=== PATIENT | male | born 1955 | race Caucasian/White ===

== ENCOUNTER 2016-09-03 16:01 | Emergency (ER) | payer MEDICARE, OTHER ==
[~2016-09-03] VITALS: Ht 180.3 cm; Wt 90.0 kg
[~2016-09-03 16:01] MED LIST: ASPI81CH5 CHEW; ATOR20TA PO; ENAL20TA PO; NOVOLOGP2 SQ; PANT20 PO; PARO20TA PO; PLAV75TA PO
[2016-09-03 16:06] VITALS: BP 130/58; PULSE 86; RESP 18; TEMP 99.6; O2SAT 98
[2016-09-03] MEDS ORDERED: CLOP75TA PO (17:02)
[2016-09-03] MEDS ORDERED: METF1000 PO (17:02)
[2016-09-03] MEDS ORDERED: PANT40TA3 PO (17:02)
[2016-09-03] MEDS ORDERED: ENAL20TA PO (17:02)
[2016-09-03] MEDS ORDERED: ATOR20TA15 PO (17:02)
[2016-09-03] MEDS ORDERED: PARO20TA2 PO (17:02)
[2016-09-03] MEDS ORDERED: LIDOCAINE 1%/EPINEPHrine 1:100,000 SOLN 20 ML VIAL INFIL ONE (17:45)
[2016-09-03] MEDS ORDERED: NORC5TAB PO (18:06)
[2016-09-03] MEDS ORDERED: BACI500O9 TOPICAL (18:06)
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
[2016-09-03] MEDS ORDERED: ACETAMINOPHEN/HYDROcodone 325 MG/5 MG TAB PO ONE (18:15)
[2016-09-03] MEDS ORDERED: BACITRACIN TOP OINT 15 GM TUBE TOPICAL ONE (18:15)
== END 2016-09-03 18:53 | disposition home or self-care (01) ==
LOC: PHED 16:01 → PHEFT 18:53
DX: T24.312A Burn of third degree of left thigh, initial encounter (principal); E11.9 Type 2 diabetes mellitus without complications; J45.909 Unspecified asthma, uncomplicated; J44.9 Chronic obstructive pulmonary disease, unspecified; I25.10 Atherosclerotic heart disease of native coronary artery without angina pectoris; K21.9 Gastro-esophageal reflux disease without esophagitis; X16.XXXA Contact with hot heating appliances, radiators and pipes, initial encounter
CPT/HCPCS: 99283

== ENCOUNTER 2016-09-15 19:54 | Emergency (ER) | payer OTHER ==
[~2016-09-15] VITALS: Ht 182.9 cm; Wt 92.5 kg
[~2016-09-15 19:54] MED LIST changes: -ASPI81CH5 CHEW; -ATOR20TA PO; +ATOR20TA15 PO; +BACI500O9 TOPICAL; +CLOP75TA PO; +METF1000 PO; +NORC5TAB PO; -NOVOLOGP2 SQ; -PANT20 PO; +PANT40TA3 PO; -PARO20TA PO; +PARO20TA2 PO; -PLAV75TA PO
[2016-09-15 20:00] VITALS: BP 144/65; PULSE 79; RESP 18; TEMP 98; O2SAT 99
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
[2016-09-15] MEDS ORDERED: VIST25CA PO (20:42)
[2016-09-15] MEDS ORDERED: CLIN1CAP5 PO (20:42)
[2016-09-15] MEDS ORDERED: CLINDAMYCIN 150 MG CAP PO SCH (20:45)
== END 2016-09-15 20:55 | disposition home or self-care (01) ==
LOC: PHEFT 19:54
DX: L08.89 Other specified local infections of the skin and subcutaneous tissue (principal); E11.9 Type 2 diabetes mellitus without complications; E78.00 Pure hypercholesterolemia, unspecified; F17.200 Nicotine dependence, unspecified, uncomplicated; Z79.4 Long term (current) use of insulin; Z79.01 Long term (current) use of anticoagulants; Z87.09 Personal history of other diseases of the respiratory system; Z86.79 Personal history of other diseases of the circulatory system; Z87.19 Personal history of other diseases of the digestive system; Z86.69 Personal history of other diseases of the nervous system and sense organs
CPT/HCPCS: 99282

== ENCOUNTER 2016-09-18 17:07 | Emergency (ER) | payer OTHER ==
[~2016-09-18] VITALS: Ht 182.9 cm; Wt 93.1 kg
[~2016-09-18 17:07] MED LIST changes: +CLIN1CAP5 PO; +VIST25CA PO
[2016-09-18 17:12] VITALS: BP 151/68; PULSE 78; RESP 16; TEMP 98.8; O2SAT 99
[2016-09-18] MEDS ORDERED: DEXAMETHASONE SOD PHOS 4 MG/ML VIAL IV PUSH ONE (18:00)
[2016-09-18] MEDS ORDERED: methylPREDNISolone SOD SUCC 125 MG/2 ML VIAL IV PUSH ONE ×2 (18:00→18:15)
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
[2016-09-18 18:40] LABS: AUTOMATED NEUTROPHIL # 5.1 TH/MM3 (1.8-7.7); BASOPHIL # 0.1 TH/MM3 (0-0.2); EOSINOPHIL # 0.4 TH/MM3 (0-0.4); EOSINOPHIL % 5.4 % (0.0-4.0); HEMATOCRIT 38.6 % (39.0-51.0); HEMO FLAGS DIFF FINAL; LYMPH % 17.2 % (9.0-44.0); LYMPHOCYTE # 1.3 TH/MM3 (1.0-4.8); MEAN CELL VOLUME 92.2 FL (80.0-100.0); MEAN CORPUSCULAR HEMOGLOBIN 30.4 PG (27.0-34.0); MEAN CORPUSCULAR HGB CONC 32.9 % (32.0-36.0); MONO % 7.7 % (0.0-8.0); NEUT % 68.7 % (16.0-70.0); PLATELET COUNT 339 TH/MM3 (150-450); RED BLOOD COUNT 4.19 MIL/MM3 (4.50-5.90); RED CELL DISTRIBUTION WIDTH 13.8 % (11.6-17.2); WHITE BLOOD COUNT 7.5 TH/MM3 (4.0-11.0)
[2016-09-18 18:54] LABS: POTASSIUM 4.1 MEQ/L (3.5-5.1)
[2016-09-18 19:00] LABS: BICARBONATE 26.2 MEQ/L (21.0-32.0)
[2016-09-18] MEDS ORDERED: SODIUM CHLORID 0.9% 500 ML INJ 500 ML IV ONE (19:15)
[2016-09-18] MEDS ORDERED: CEPH-460 PO (19:19)
[2016-09-18] MEDS ORDERED: PERM5CRE TOPICAL (19:19)
[2016-09-18 19:40] VITALS: BP 168/74
== END 2016-09-18 19:42 | disposition home or self-care (01) ==
LOC: PHEFT 17:07
DX: R21 Rash and other nonspecific skin eruption (principal); B86 Scabies; S81.801D Unspecified open wound, right lower leg, subsequent encounter; B95.62 Methicillin resistant Staphylococcus aureus infection as the cause of diseases classified elsewhere; B96.5 Pseudomonas (aeruginosa) (mallei) (pseudomallei) as the cause of diseases classified elsewhere; J45.909 Unspecified asthma, uncomplicated; J44.9 Chronic obstructive pulmonary disease, unspecified; I25.10 Atherosclerotic heart disease of native coronary artery without angina pectoris; E11.9 Type 2 diabetes mellitus without complications; K21.9 Gastro-esophageal reflux disease without esophagitis; E78.00 Pure hypercholesterolemia, unspecified; Z79.01 Long term (current) use of anticoagulants
CPT/HCPCS: 80048; 85025; 87070; 87077; 87186; 96374; 99283; J2930; J7040; 87205

== ENCOUNTER 2017-07-06 17:29 | Emergency (ER) | payer OTHER ==
[~2017-07-06] VITALS: Ht 177.8 cm; Wt 95.0 kg
[~2017-07-06 17:29] MED LIST changes: +CEPH-460 PO; +CLIN150C14 PO; -CLIN1CAP5 PO; -NORC5TAB PO; +PERM5CRE TOPICAL
[2017-07-06 17:42] VITALS: BP 173/74; PULSE 76; RESP 22; TEMP 98.1; O2SAT 99
[2017-07-06] MEDS ORDERED: methylPREDNISolone SOD SUCC 125 MG/2 ML VIAL IV PUSH ONE (17:45)
--- NOTE | 2017-07-06 17:47 | PD ---
HPI Chief Complaint: Diabetic Time Seen by Provider: 17:37 Travel History International Travel<30 days: No Contact w/Intl Traveler<30days: No Traveled to known affect area: No History of Present Illness HPI 61yo M with PMH of COPD, IDDM on insulin pump here with c/o hypoglycemia. Pt was found thrashing on the floor and has an abrasion in right heal and c/o bilateral back pain as well as left sided neck pain. Pt denies any suicidal or homicidal ideation. Said he has been feeling depress since he was diagnose with insulin as a child but is ok with it. Said he check his sugar and it was in the 40s but he didnt manage to eat. Pt was found to be hypoglycemia with glucose of 18 and given D10. Pt's glucose is 81 on arrival. Pt has been coughing a lot lately. Denies any fever, chest pain, sob, n/v, abdominal pain, focal weakness or numbness. PFSH Past Medical History Hx Anticoagulant Therapy: Yes Asthma: Yes Blood Disorders: No Depression: Yes (UNDER CONTROL) Heart Rhythm Problems: No Cancer: No Cardiac Catheterization: Yes Cardiovascular Problems: Yes High Cholesterol: Yes Chest Pain: No Congestive Heart Failure: No COPD: Yes Coronary Artery Disease: Yes Diabetes: Yes Patient Takes Glucophage: Yes (07/06/17 0800) Diminished Hearing: No Endocrine: Yes Gastrointestinal Disorders: Yes GERD: Yes Genitourinary: No Headaches: Yes Heparin Induced Thrombocytopen: No Immune Disorder: No Implanted Vascular Access Dvce: Yes Musculoskeletal: No Neurologic: Yes Psychiatric: Yes Reproductive: No Respiratory: Yes Immunizations Current: No Migraines: Yes PNEUMOCCOCAL Vaccine (Year): 2 Past Surgical History Body Medical Devices: INSULIN PUMP [employer] PAR[employer]IGM NOVOLOG REGULAR Cardiac Surgery: Yes (CABG W/ 6 VESSELS ) Coronary Artery Bypass Graft: Yes (6 VESSEL 1991) Eye Surgery: Yes (CATARACT-BILATERAL) Neurologic Surgery: No Other Surgery: Yes Social History Alcohol Use: Yes (rare) Tobacco Use: No (quit 2015) Substance Use: No Allergies-Medications (Allergen,Severity, Reaction): Coded Allergies: Sulfa (Sulfonamide Antibiotics) (Unverified Allergy, Severe, altered mentation, HIVES, 01/15/17) povidone-iodine (Unverified Allergy, Severe, hives, 01/15/17) shellfish derived (Unverified Allergy, Severe, HIVES, 01/15/17) metformin (Unverified Allergy, Unknown, 01/15/17) CURRENTLY TAKING WITH NO ISSUES *MDRO Multi-Drug Resistant Organism (Verified Adverse Reaction, Unknown, ) 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 Reported Meds & Prescriptions Reported Meds & Active Scripts Active Ventolin Hfa 18 GM Inh (Albuterol Sulfate) 90 Mcg/Act Aer 2 Puff INH Q4H PRN Deltasone (Prednisone) 20 Mg Tab 20 Mg PO BID 5 Days Keflex (Cephalexin) 500 Mg Cap 500 Mg PO Q8H Permethrin Topical 5% (Permethrin) 5% Cream 1 Applic TOPICAL ONCE Vistaril (Hydroxyzine Pamoate) 25 Mg Cap 25 Mg PO TID PRN Clindamycin (Clindamycin HCl) 150 Mg Cap 450 Mg PO Q6H 10 Days Bacitracin Topical 500 Unit/Gm Oint 1 Applic TOPICAL BID Reported Atorvastatin (Atorvastatin Calcium) 20 Mg Tab 20 Mg PO DAILY Paroxetine (Paroxetine HCl) 20 Mg Tab 20 Mg PO DAILY Pantoprazole (Pantoprazole Sodium) 40 Mg Tab 40 Mg PO DAILY Enalapril (Enalapril Maleate) 20 Mg Tab 20 Mg PO HS Clopidogrel (Clopidogrel Bisulfate) 75 Mg Tab 75 Mg PO DAILY Metformin (Metformin HCl) 1,000 Mg Tab 1,000 Mg PO BIDPC With meals Review of Systems Except as stated in HPI: all other systems reviewed are Neg Physical Exam Narrative GENERAL: 61yo M not in distress. SKIN: Focused skin assessment warm/dry. HEAD: Atraumatic. Normocephalic. EYES: Pupils equal and round. No scleral icterus. No injection or drainage. ENT: No nasal bleeding or discharge. Mucous membranes pink and moist. NECK: Trachea midline. No JVD. CARDIOVASCULAR: Regular rate and rhythm. No murmur appreciated. RESPIRATORY: Expiratory wheezing bilaterally. GASTROINTESTINAL: Abdomen soft, non-tender, nondistended. MUSCULOSKELETAL: Right heal: +Skin tear plantar service of right foot. DP 2+. Sensation intact. NEUROLOGICAL: Awake and alert. No obvious cranial nerve deficits. Motor grossly within normal limits. Normal speech. PSYCHIATRIC: Appropriate mood and affect; insight and judgment normal. Data Data Last Documented VS Vital Signs Date Time Temp Pulse Resp B/P (MAP) Pulse Ox O2 Delivery O2 Flow Rate FiO2 2/3/18 21:11 07/06/17 18:45 58 16 100 Room Air 07/06/17 17:42 98.1 Orders Orders Complete Blood Count With Diff (07/06/17 17:44) Basic Metabolic Panel (Bmp) (07/06/17 17:44) Prothrombin Time / Inr (Pt) (07/06/17 17:44) Act Partial Throm Time (Ptt) (07/06/17 17:44) Ct Brain W/O Iv Contrast(Rout) (07/06/17 ) Troponin I (07/06/17 17:44) Chest, Single Ap (07/06/17 ) Methylprednisolone So Succ Inj (Solumedr (07/06/17 17:45) Albuterol-Ipratropium Neb (Duoneb Neb) (07/06/17 17:45) Foot, Limited (2vws) (07/06/17 ) Ct Cerv Spine W/O Contrast (07/06/17 ) Apply Cervical Collar (07/06/17 17:48) Creatine Kinase (Cpk) (07/06/17 18:05) Collar [place] (07/06/17 ) Dextrose 50% In Yarely (Vial) Inj (D50w (Vi (07/06/17 19:30) Acetamin-Hydrocod 325-5 Mg ([place] 5-325 (07/06/17 19:45) Ed Discharge Order (07/06/17 21:12) Electrocardiogram (07/06/17 19:49) Labs Laboratory Tests Test 07/06/17 18:05 07/06/17 18:49 White Blood Count 13.4 TH/MM3 Red Blood Count 4.68 MIL/MM3 Hemoglobin 14.8 GM/DL Hematocrit 43.3 % Mean Corpuscular Volume 92.4 FL Mean Corpuscular Hemoglobin 31.7 PG Mean Corpuscular Hemoglobin Concent 34.3 % Red Cell Distribution Width 14.2 % Platelet Count 348 TH/MM3 Mean Platelet Volume 6.3 FL Neutrophils (%) (Auto) 83.8 % Lymphocytes (%) (Auto) 8.7 % Monocytes (%) (Auto) 5.3 % Eosinophils (%) (Auto) 1.7 % Basophils (%) (Auto) 0.5 % Neutrophils # (Auto) 11.2 TH/MM3 Lymphocytes # (Auto) 1.2 TH/MM3 Monocytes # (Auto) 0.7 TH/MM3 Eosinophils # (Auto) 0.2 TH/MM3 Basophils # (Auto) 0.1 TH/MM3 CBC Comment DIFF FINAL Differential Comment Prothrombin Time 10.0 SEC Prothromb Time International Ratio 1.0 RATIO Activated Partial Thromboplast Time 22.5 SEC Blood Urea Nitrogen 19 MG/DL Creatinine 1.31 MG/DL Random Glucose 30 MG/DL Calcium Level 8.9 MG/DL Sodium Level 133 MEQ/L Potassium Level 5.1 MEQ/L Chloride Level 101 MEQ/L Carbon Dioxide Level 25.4 MEQ/L Anion Gap 7 MEQ/L Estimat Glomerular Filtration Rate 55 ML/MIN Total Creatine Kinase 133 U/L Troponin I LESS THAN 0.02 NG/ML MDM Medical Decision Making Medical Screen Exam Complete: Yes Emergency Medical Condition: Yes Differential Diagnosis Hypoglycemia secondary to over insulin use vs. infection Narrative Course 61yo M with IDDM here with hypoglycemia. Labs reviewed, leukocytosis at 13.4. CT cspine showed slight neural foramina compromise left C6-7. CXR negative. Xray right foot showed no acute fracture. CT brain unremarkable. BMP and trop pending. Sign out to next team to follow rest of labs and recheck glucose. Up to date on tetanus. Diagnosis Primary Impression: Hypoglycemia Additional Impression: COPD exacerbation Med/Other Pt SpecificInfo: Prescription(s) given Scripts Albuterol 18 GM Inh (Ventolin Hfa 18 GM Inh) 90 Mcg/Act Aer 2 PUFF INH Q4H Y for SHORTNESS OF BREATH, #1 INHALER 0 Refills Prov: Aruna Gonzalez DO 07/06/17 Prednisone (Deltasone) 20 Mg Tab 20 MG PO BID for 5 Days, #10 TAB 0 Refills Prov: Aruna Gonzalez DO 07/06/17 Aruna Gonzalez DO Jul 06, 2017 17:47
--- NOTE | 2017-07-06 18:14 | RADRPT ---
EXAM DATE/TIME: 07/06/2017 17:57 [facility] COMPARISON: CT BRAIN W/O CONTRAST, May 30, 2013, 17:15. INDICATIONS : Trauma, fall onto head today. RADIATION DOSE: 56.35 CTDIvol (mGy) MEDICAL HISTORY : Myocardial infarction. Chronic obstructive pulmonary disease. SURGICAL HISTORY : CABG ENCOUNTER: Initial ACUITY: 1 day PAIN SCALE: 5/10 LOCATION: Bilateral head TECHNIQUE: Multiple contiguous axial images were obtained of the head. Using automated exposure control and adj ustment of the mA and/or kV according to patient size, radiation dose was kept as low as reasonably a chievable to obtain optimal diagnostic quality images. DICOM format image data is available electro nically for review and comparison. FINDINGS: There is no evidence for intracranial hemorrhage, mass effect, mass lesions, edema, or extra-axial fl uid collections. The visualized bony structures appear intact. The ventricles are normal size for t he patient's age. There are no signs of acute infarction for technique. There is mild mucoperiosteal thickening within right maxillary sinus. CONCLUSION: Unremarkable study. Minna Graham MD on July 06, 2017 at 18:10 Board Certified Radiologist. This report was verified electronically.
[2017-07-06] MEDS: RESP: ALBUTEROL 2.5 MG/IPRATROPIUM 0.5 MG NEB (SCH) INH ×2 (18:23→18:24)
[2017-07-06 18:25] LABS: AUTOMATED NEUTROPHIL # 11.2 TH/MM3 (1.8-7.7); BASOPHIL # 0.1 TH/MM3 (0-0.2); BASOPHIL % 0.5 % (0.0-2.0); EOSINOPHIL # 0.2 TH/MM3 (0-0.4); EOSINOPHIL % 1.7 % (0.0-4.0); HEMATOCRIT 43.3 % (39.0-51.0); HEMOGLOBIN 14.8 GM/DL (13.0-17.0); LYMPH % 8.7 % (9.0-44.0); LYMPHOCYTE # 1.2 TH/MM3 (1.0-4.8); MEAN CELL VOLUME 92.4 FL (80.0-100.0); MEAN CORPUSCULAR HEMOGLOBIN 31.7 PG (27.0-34.0); MEAN CORPUSCULAR HGB CONC 34.3 % (32.0-36.0); MEAN PLATELET VOLUME 6.3 FL (7.0-11.0); MONO % 5.3 % (0.0-8.0); MONOCYTE # 0.7 TH/MM3 (0-0.9); NEUT % 83.8 % (16.0-70.0); PLATELET COUNT 348 TH/MM3 (150-450); RED BLOOD COUNT 4.68 MIL/MM3 (4.50-5.90); RED CELL DISTRIBUTION WIDTH 14.2 % (11.6-17.2); WHITE BLOOD COUNT 13.4 TH/MM3 (4.0-11.0)
--- NOTE | 2017-07-06 18:28 | RADRPT ---
EXAM DATE/TIME: 07/06/2017 17:59 [facility] COMPARISON: No previous studies available for comparison. INDICATIONS : Trauma, fall onto head today. RADIATION DOSE: 31.19 CTDIvol (mGy) MEDICAL HISTORY : Myocardial infarction. Chronic obstructive pulmonary disease. SURGICAL HISTORY : CABG ENCOUNTER: Initial ACUITY: 1 day PAIN SCALE: 5/10 LOCATION: Bilateral neck TECHNIQUE: Volumetric scanning of the cervical spine was performed. Multiplanar reconstructions in the sagittal, coronal and oblique axial planes were performed. Using automated exposure control and adjustment o f the mA and/or kV according to patient size, radiation dose was kept as low as reasonably achievable to obtain optimal diagnostic quality images. DICOM format image data is available electronically f or review and comparison. FINDINGS: No significant subluxation or soft tissue swelling is seen. No definite fracture is seen for techniqu e. Degenerative spondylosis is present at multiple levels worst at C6-7. C2-C3: No appreciable compromised to the thecal sac, exiting nerve roots are seen. The neural july graciela are patent bilaterally. No appreciable thecal sac stenosis is seen. C3-C4: No appreciable compromised to the thecal sac, exiting nerve roots are seen. The neural july graciela are patent bilaterally. No appreciable thecal sac stenosis is seen. C4-C5: No appreciable compromised to the thecal sac, exiting nerve roots are seen. The neural july graciela are patent bilaterally. No appreciable thecal sac stenosis is seen. C5-C6: No appreciable compromised to the thecal sac, exiting nerve roots are seen. The neural july graciela are patent bilaterally. No appreciable thecal sac stenosis is seen. C6-C7: Moderate degenerative changes are seen within the disc space and facets. There is slight neura l foramina compromise on the left due to asymmetrical bulging disc and hypertrophic changes. Slight b ulging disc and hypertrophic changes are seen with indentation on the thecal sac and no significant c ompromise to the thecal sac. C7-T1: No appreciable compromised to the thecal sac, exiting nerve roots are seen. The neural july graciela are patent bilaterally. No appreciable thecal sac stenosis is seen CONCLUSION: Slight neural foramina compromise left C6-C7. Minna Graham MD on July 06, 2017 at 18:21 Board Certified Radiologist. This report was verified electronically.
--- NOTE | 2017-07-06 18:29 | RADRPT ---
EXAM DATE/TIME: 07/06/2017 18:06 [facility] COMPARISON: No previous studies available for comparison. INDICATIONS : Cough. Congestion. MEDICAL HISTORY : Cardiovascular disease. SURGICAL HISTORY : CABG. ENCOUNTER: Initial ACUITY: 2 days PAIN SCORE: 5/10 LOCATION: Bilateral chest FINDINGS: The lungs are clear without infiltrate, nodule, or mass. There is no appreciable pleural effusion fo r technique. Heart and mediastinum are unremarkable. There is evidence for prior median sternotomy. CONCLUSION: No acute cardiopulmonary disease. Minna Graham MD on July 06, 2017 at 18:27 Board Certified Radiologist. This report was verified electronically.
--- NOTE | 2017-07-06 18:31 | RADRPT ---
EXAM DATE/TIME: 07/06/2017 18:08 [facility] COMPARISON: No previous studies available for comparison. INDICATIONS : Fall. Right foot pain. MEDICAL HISTORY : None. SURGICAL HISTORY : None. ENCOUNTER: Initial ACUITY: 1 day PAIN SCORE: 5/10 LOCATION: Right lateral FINDINGS: No definite fractures, or dislocations are identified. No definite lytic or sclerotic lesion is seen . There are degenerative changes within multiple joints mainly the interphalangeal joints and the fir st metatarsophalangeal joint with a spur at the attachment site of the Achilles tendon on the calcan eus. CONCLUSION: Chronic changes and no evidence for acute fracture. Minna Graham MD on July 06, 2017 at 18:28 Board Certified Radiologist. This report was verified electronically.
[2017-07-06 18:45] VITALS: BP 156/70; PULSE 58; RESP 16; O2SAT 100
[2017-07-06 19:22] LABS: BICARBONATE 25.4 MEQ/L (21.0-32.0); BLOOD UREA NITROGEN 19 MG/DL (7-18); CALCIUM 8.9 MG/DL (8.5-10.1); CHLORIDE 101 MEQ/L (98-107); CREATININE 1.31 MG/DL (0.60-1.30); GLOMERULAR FILTRATION RATE 55 ML/MIN (>89); SODIUM (NA) 133 MEQ/L (136-145)
[2017-07-06] MEDS ORDERED: PRED-503 PO (19:23)
[2017-07-06] MEDS ORDERED: VENTAER INH (19:23)
[2017-07-06 19:24] LABS: TROPONIN I LESS THAN 0.02 NG/ML (0.02-0.05)
[2017-07-06 19:25] LABS: GLUCOSE,RANDOM 30 MG/DL (74-106)
[2017-07-06] MEDS ORDERED: DEXTROSE 50% IN WATER 50 ML VIAL(D50) IV PUSH ONE (19:30)
[2017-07-06] MEDS ORDERED: ACETAMINOPHEN/HYDROcodone 325 MG/5 MG TAB PO ONE (19:45)
--- NOTE | 2017-07-06 21:07 | PD ---
Data Data Last Documented VS Vital Signs Date Time Temp Pulse Resp B/P (MAP) Pulse Ox O2 Delivery O2 Flow Rate FiO2 07/06/17 18:45 58 16 156/70 (98) 100 Room Air 07/06/17 17:42 98.1 Orders Orders Complete Blood Count With Diff (07/06/17 17:44) Basic Metabolic Panel (Bmp) (07/06/17 17:44) Prothrombin Time / Inr (Pt) (07/06/17 17:44) Act Partial Throm Time (Ptt) (07/06/17 17:44) Ct Brain W/O Iv Contrast(Rout) (07/06/17 ) Troponin I (07/06/17 17:44) Chest, Single Ap (07/06/17 ) Methylprednisolone So Succ Inj (Solumedr (07/06/17 17:45) Albuterol-Ipratropium Neb (Duoneb Neb) (07/06/17 17:45) Foot, Limited (2vws) (07/06/17 ) Ct Cerv Spine W/O Contrast (07/06/17 ) Apply Cervical Collar (07/06/17 17:48) Creatine Kinase (Cpk) (07/06/17 18:05) Collar [place] (07/06/17 ) Dextrose 50% In [place] (Vial) Inj (D50w (Vi (07/06/17 19:30) Acetamin-Hydrocod 325-5 Mg ([place] 5-325 (07/06/17 19:45) Labs Laboratory Tests Test 07/06/17 18:05 07/06/17 18:49 White Blood Count 13.4 TH/MM3 Red Blood Count 4.68 MIL/MM3 Hemoglobin 14.8 GM/DL Hematocrit 43.3 % Mean Corpuscular Volume 92.4 FL Mean Corpuscular Hemoglobin 31.7 PG Mean Corpuscular Hemoglobin Concent 34.3 % Red Cell Distribution Width 14.2 % Platelet Count 348 TH/MM3 Mean Platelet Volume 6.3 FL Neutrophils (%) (Auto) 83.8 % Lymphocytes (%) (Auto) 8.7 % Monocytes (%) (Auto) 5.3 % Eosinophils (%) (Auto) 1.7 % Basophils (%) (Auto) 0.5 % Neutrophils # (Auto) 11.2 TH/MM3 Lymphocytes # (Auto) 1.2 TH/MM3 Monocytes # (Auto) 0.7 TH/MM3 Eosinophils # (Auto) 0.2 TH/MM3 Basophils # (Auto) 0.1 TH/MM3 CBC Comment DIFF FINAL Differential Comment Prothrombin Time 10.0 SEC Prothromb Time International Ratio 1.0 RATIO Activated Partial Thromboplast Time 22.5 SEC Blood Urea Nitrogen 19 MG/DL Creatinine 1.31 MG/DL Random Glucose 30 MG/DL Calcium Level 8.9 MG/DL Sodium Level 133 MEQ/L Potassium Level 5.1 MEQ/L Chloride Level 101 MEQ/L Carbon Dioxide Level 25.4 MEQ/L Anion Gap 7 MEQ/L Estimat Glomerular Filtration Rate 55 ML/MIN Total Creatine Kinase 133 U/L Troponin I LESS THAN 0.02 NG/ML MDM Supervised Visit with [facility]: No Narrative Course The patient was initially evaluated by the previous provider and sent out to me at the beginning of my shift pending chemistry and disposition. See her note for further details. Briefly this is a 61-year-old male who is insulin-dependent diabetic with an insulin pump who was found to be hypoglycemic with a BGL of 30. He was given D50 by EMS and here on arrival was 86. Chemistry was again 30 and fingerstick at time of shift change also showed 30. Patient is awake and alert and denies any physical complaints. Full workup was performed by the previous provider. See her notes. Patient was given an amp of D50 and food and an hour later his BGL was in the 300s. He remains awake and alert and feels well. He is not suicidal. He would like to be discharged home. He is stable for discharge home with outpatient follow-up with his primary care physician this week. He also had some wheezing noted by the previous provider and was given 3 DuoNeb treatments with resolution. He'll be discharged home with an albuterol inhaler and prednisone. He was advised when to return to the emergency department. He verbalizes understanding and agreement with plan. Diagnosis Primary Impression: Hypoglycemia Additional Impression: COPD exacerbation Referrals: Primary Care Physician 3 days Additional Instruction: Follow-up with your primary care physician this week. Return to the emergency department for worsening symptoms or any other concerns. Scripts Albuterol 18 GM Inh (Ventolin Hfa 18 GM Inh) 90 Mcg/Act Aer 2 PUFF INH Q4H Y for SHORTNESS OF BREATH, #1 INHALER 0 Refills Prov: Aruna Gonzalez DO 07/06/17 Prednisone (Deltasone) 20 Mg Tab 20 MG PO BID for 5 Days, #10 TAB 0 Refills Prov: Aruna Gonzalez DO 07/06/17 Disposition: 01 DISCHARGE HOME Condition: Stable Herminio Dick MD Jul 06, 2017 21:07
--- NOTE | 2017-07-07 13:00 | EKG ---
Date Performed: 07/06/2017 Time Performed: 19:49:03 PTAGE: 61 years EKG: Probable anteroseptal myocardial infarction of undetermined age Minor nonspecific T-wave ch dharmesh Compared to previous tracing, T-wave somewhat more flattened, otherwise no significant change. B ORDERLINE ECG PREVIOUS TRACING : 05/27/2015 20.56 DOCTOR: Castro Cantu Interpretating Date/Time 07/07/2017 12:59:03
== END 2017-07-06 21:18 | disposition home or self-care (01) ==
LOC: NEPE 17:29
DX: E11.649 Type 2 diabetes mellitus with hypoglycemia without coma (principal); J44.1 Chronic obstructive pulmonary disease with (acute) exacerbation; R94.31 Abnormal electrocardiogram [ECG] [EKG]; S90.811A Abrasion, right foot, initial encounter; S09.90XA Unspecified injury of head, initial encounter; X58.XXXA Exposure to other specified factors, initial encounter; E78.00 Pure hypercholesterolemia, unspecified; F32.9 Major depressive disorder, single episode, unspecified; I25.10 Atherosclerotic heart disease of native coronary artery without angina pectoris
CPT/HCPCS: 70450; 71045; 72125; 73620; 80048; 82550; 84484; 85025; 85610; 85730; 93005; 94640; 94664; 96374; 96375; 99285; J2930; L0150